=== PATIENT | male | born 1955 | race Caucasian/White ===

== ENCOUNTER 2016-07-17 23:52 | Emergency (ER) | payer MEDICAID ==
[2016-07-17 23:59] VITALS: RESP 16
[2016-07-18 00:20] LABS: COLOR YELLOW; LEUKOCYTE ESTERASE,URINE 3+ (NEGATIVE); NITRITE,URINE POSITIVE (NEGATIVE)
--- NOTE | 2016-07-18 00:23 | EDPHY ---
H & P Stated Complaint: Painful urination Time Seen by Provider: 07/18/16 00:01 HPI/ROS: Chief complaint: Burning with urination HPI: 60-year-old male presenting with 10 days of increasing urination burning with urination. Denies any fevers or chills. No abdominal pain. No back pain. No nausea or vomiting. Has not followed up with his primary care physician. Does have a history of BPH. Does not state any changes in his ability to empty his bladder. ROS: 10 point Review of Systems is negative except as noted in the HPI. Past medical history: BPH Hypertension Traumatic brain injury Physical exam: Gen: Awake, Alert, No Distress HEENT: Nose: no rhinorrhea Eyes: PERRLA, EOMI Mouth: Moist mucosa Neck: Supple, no JVD Chest: nontender, lungs clear to auscultation Heart: S1, S2 normal, no murmur Abd: Soft, non-tender, no guarding Back: no CVA tenderness, no midline tenderness Ext: no edema, non-tender Skin: no rash Neuro: CN II-XII intact, Sensation grossly intact, Strength 5/5 in bilateral upper and lower extremities - Personal History Current Tetanus/Diphtheria Vaccine: Yes Current Tetanus Diphtheria and Acellular Pertussis (TDAP): Yes - Medical/Surgical History Hx Asthma: Yes Hx Chronic Respiratory Disease: Yes Hx Diabetes: No Hx Cardiac Disease: No Hx Renal Disease: No Hx Cirrhosis: No Hx Alcoholism: No Hx HIV/AIDS: No Hx Splenectomy or Spleen Trauma: No Other PMH: hep c, closed head injury, asthma/COPD,HTN - Social History Smoking Status: Former smoker Constitutional: Initial Vital Signs Temperature (C) 36.8 C 07/17/16 23:55 Heart Rate 74 07/17/16 23:55 Respiratory Rate 16 07/17/16 23:55 Blood Pressure 185/98 H 07/17/16 23:55 O2 Sat (%) 94 07/17/16 23:55 O2 Delivery Mode Room Air Allergies/Adverse Reactions: codeine Allergy (Verified 07/18/16 00:00) morphine Allergy (Verified 07/18/16 00:00) oxycodone HCl [From Percodan] Allergy (Verified 07/18/16 00:00) oxycodone terephthalate [From Percodan] Allergy (Verified 07/18/16 00:00) Home Medications: Medication Instructions Recorded Carbamazepine [Tegretol] 0 mg PO 01/15/13 Clonazepam 0 mg PO 01/15/13 Clonidine HCl 0 mg PO 01/15/13 DILTIAZEM HCL [Cartia XT 120mg] 0 mg PO DAILY 01/15/13 Hydrocodone/Ibuprofen [Vicoprofen 0 tab PO Q6PRN PRN 01/15/13 200/7.5] Lisinopril [Zestril] 0 mg PO DAILY 01/15/13 lamOTRIGine [LamICTAL ODT] 0 mg PO 01/15/13 Hydrocodone/Ibuprofen [Vicoprofen 1 each PO BID PRN #30 tablet 01/01/14 200-7.5 Mg Tab] Sulfamethox/Tmp 800/160 mg 1 tab PO BID #14 tab 01/01/14 [Bactrim Ds Tablet] Diazepam 5 mg PO TID PRN #7 tab 07/24/15 Nitrofurantoin Monohyd/M-Cryst 100 mg PO BID #14 capsule 07/18/16 [Macrobid 100 mg Capsule] Medical Decision Making ED Course/Re-evaluation: Urinalysis is consistent with UTI. Patient will be given Macrobid. Cultures have been sent. He has been instructed follow up with primary care physician in 2 days for re-evaluation to follow up culture results. - Data Points Laboratory Results: 07/18/16 00:05 Urine Color YELLOW Urine Appearance MODERATELY TURBID Urine pH 8.0 H (5.0-7.5) Ur Specific [place] 1.008 (1.002-1.030) Urine Protein NEGATIVE (NEGATIVE) Urine Ketones NEGATIVE (NEGATIVE) Urine Blood 1+ H (NEGATIVE) Urine Nitrate POSITIVE H (NEGATIVE) Urine Bilirubin NEGATIVE (NEGATIVE) Urine Urobilinogen NEGATIVE EU EU (0.2-1.0) Ur Leukocyte Esterase 3+ H (NEGATIVE) Urine RBC 10-15 /hpf H /hpf (0-3) Urine WBC 50-182 /hpf H /hpf (0-3) Ur Epithelial Cells NONE SEEN /lpf /lpf (NONE-1+) Urine Bacteria TRACE /hpf H /hpf (NONE SEEN) Ur Culture Indicated? INDICATED H (NI) Urine Glucose NEGATIVE (NEGATIVE) Departure - Departure Disposition: Home, Routine, Self-Care Clinical Impression: Urinary tract infection Condition: Good Instructions: Urinary Tract Infection in Men (ED) Additional Instructions: Please take your full course of antibiotics. Follow up with your primary care physician in 2 days for reassessment and to check your urine culture results. Return to the emergency depart for increasing pain, fevers, chills, or any other concerns. Referrals: Beka Whittaker MD [Primary Care Provider] - As per Instructions Prescriptions: Nitrofurantoin Monohyd/M-Cryst [Macrobid 100 mg Capsule] 100 mg PO BID #14 capsule
[2016-07-18 00:31] LABS: BACTERIA TRACE /hpf (NONE SEEN); WBC,URINE 50-182 /hpf (0-3)
[2016-07-18] MEDS ORDERED: NITROFURANTOIN 100MG PREPACK#2 BTL TAKEHOME ONE (00:55)
[2016-07-18 01:12] VITALS: BP 171/78; PULSE 73; TEMP 98.1; O2SAT 97
== END 2016-07-18 01:12 | disposition home or self-care (01) ==
DX: N39.0 Urinary tract infection, site not specified (principal); B96.89 Other specified bacterial agents as the cause of diseases classified elsewhere; J44.9 Chronic obstructive pulmonary disease, unspecified; I10 Essential (primary) hypertension; Z87.891 Personal history of nicotine dependence